=== PATIENT | male | born 1980 | race African-American/Black ===

== ENCOUNTER 2016-10-14 08:39 | Emergency (ER) | payer OTHER ==
[~2016-10-14] VITALS: Ht 160 cm; Wt 67.6 kg
== END 2016-10-14 10:41 | disposition home or self-care (01) ==
LOC: ED 08:39
DX: R30.0 Dysuria (principal); R35.0 Frequency of micturition
CPT/HCPCS: 81000; 87490; 87590; 96372; 99283; J0696